=== PATIENT | female | born 1995 | race African-American/Black ===

== ENCOUNTER 2017-01-15 12:14 | Emergency (ER) | payer OTHER ==
[~2017-01-15] VITALS: Ht 162.6 cm; Wt 50.4 kg
[~2017-01-15 12:14] MED LIST: ASPERDRINK81 MG PO; CHROMAGEN,1 CAPSULE PO; FEOSOL325 MG PO; IBUPROFEN800 MG PO; IRON325 M1 PO; MOTRIN600 MG PO; MOTRIN800 MG PO; NAPROSYN375 MG PO; NO; NOHOMEMEDS; PRENA1 CHEW TA1.4 MG PO; PRENATAL TABLE1 EAC3 PO; TORADOL10 MG PO; ZOFRAN4 MG PO; birth control
[2017-01-15 13:39] LABS: HEMATOCRIT 30.9 % (36.0-46.0); MCH 26.8 PG (29.0-34.0); MCV 81.1 FL (83-99); MEAN PLAT.VOLUME 11.2 uM^3 (9.5-12.4); PLATELET COUNT 152 K/uL (156-360); RBC DIS.WIDTH-CV 19.1 % (11.8-14.6); RBC DIS.WIDTH-SD 55.5 % (39-53); RED BLOOD COUNT 3.81 M/uL (3.80-5.20); WHITE BLOOD COUNT 5.3 K/uL (4.1-10.2)
[2017-01-15 13:51] LABS: CHLORIDE 111 mEq/L (99-109); POTASSIUM 3.7 mEq/L (3.7-5.4); SODIUM 138 mEq/L (136-147)
[2017-01-15 13:53] LABS: GLUCOSE 78 mg/dL (70-99)
[2017-01-15 13:54] LABS: ANION GAP 7 MEQ/L (2-14)
[2017-01-15 13:57] LABS: GFR ESTIMATE (CALCULATED) > 59 mL/min/
[2017-01-15 13:58] LABS: UREA NITROGEN (BUN) 7 mg/dL (9-23)
[2017-01-15 14:01] LABS: QUANTITATIVE HCG 1791.3 MIU/ML
[2017-01-15 16:59] VITALS: BP 120/75
[2017-01-18 13:32] LABS: CHLAMYDIA TRACHOMATIS NEGATIVE; NEISSERIA GONORRHOEAE NEGATIVE
== END 2017-01-15 17:11 | disposition home or self-care (01) ==
LOC: EME → EDBD 12:14 → EME 17:11
PROVIDERS: Emergency Medicine
DX: O20.0 Threatened abortion (principal); Z3A.00 Weeks of gestation of pregnancy not specified
CPT/HCPCS: 76801; 80048; 84702; 85027; 86850; 86900; 86901; 87210; 87491; 87591; 99281; 99285; J3010; J7030

== ENCOUNTER 2017-06-14 11:04 | Emergency (ER) | payer OTHER ==
[~2017-06-14] VITALS: Ht 162.6 cm; Wt 46.9 kg
[2017-06-14 13:38] LABS: HEMATOCRIT 34.9 % (36.0-46.0); MCH 26.1 PG (29.0-34.0); MCHC 31.2 G/DL (30.0-36.0); MCV 83.5 FL (83-99); RBC DIS.WIDTH-CV 17.6 % (11.8-14.6); RBC DIS.WIDTH-SD 53.6 % (39-53); RED BLOOD COUNT 4.18 M/uL (3.80-5.20); WHITE BLOOD COUNT 3.9 K/uL (4.1-10.2)
[2017-06-14 13:51] LABS: CHLORIDE 108 mEq/L (99-109); POTASSIUM 4.3 mEq/L (3.7-5.4); SODIUM 140 mEq/L (136-147)
[2017-06-14 13:52] LABS: GLUCOSE 81 mg/dL (70-99)
[2017-06-14 13:54] LABS: ANION GAP 9 MEQ/L (2-14)
[2017-06-14 13:56] LABS: GFR ESTIMATE (CALCULATED) > 59 mL/min/
[2017-06-14 13:57] LABS: UREA NITROGEN (BUN) 9 mg/dL (9-23)
[2017-06-14 14:16] LABS: MEAN PLAT.VOLUME 12.7 uM^3 (9.5-12.4); PLAT.SUFFICIENCY ADEQUATE; PLATELET COUNT 147 K/uL (156-360)
[2017-06-14 14:45] VITALS: BP 113/64
== END 2017-06-14 14:46 | disposition home or self-care (01) ==
LOC: EME 11:04
PROVIDERS: Nurse Practitioner Family
DX: D64.9 Anemia, unspecified (principal)
CPT/HCPCS: 80048; 85027; 99281; 99283

== ENCOUNTER 2017-07-22 03:36 | Emergency (ER) | payer OTHER ==
[~2017-07-22] VITALS: Ht 162.6 cm; Wt 48.8 kg
[2017-07-22] MEDS ORDERED: MOTRIN400 MG PO (06:02)
[2017-07-22 06:14] VITALS: BP 121/78
== END 2017-07-22 06:14 | disposition home or self-care (01) ==
LOC: EME 03:36
PROC: 2W3KX1Z Immobilization of Left Finger using Splint (ICD-10-PCS; principal; 2017-07-22)
DX: S60.032A Contusion of left middle finger without damage to nail, initial encounter (principal); Y04.0XXA Assault by unarmed brawl or fight, initial encounter
CPT/HCPCS: 73130; 99281; 99283

== ENCOUNTER 2018-01-03 18:44 | Outpatient (CLI) | payer OTHER ==
[~2018-01-03] VITALS: Ht 162.6 cm; Wt 60.3 kg
[~2018-01-03 18:44] MED LIST changes: +MOTRIN400 MG PO
[2018-01-03 19:16] VITALS: BP 111/60
[2018-01-03] MEDS ORDERED: CALCIUM500 M4 PO (19:30)
[2018-01-03 20:28] VITALS: BP 118/59
[2018-01-03 21:14] VITALS: BP 120/61
[2018-01-03 22:04] LABS: APPEARANCE SL.HAZY ((CLEAR)); BILIRUBIN NEGATIVE; BLOOD NEGATIVE; COLOR YELLOW ((YELLOW)); GLUCOSE (STRIP) NEGATIVE; KETONES NEGATIVE; LEUKOCYTES NEGATIVE; NITRITE NEGATIVE; PROTEIN (STRIP) NEGATIVE; SPECIFIC GRAVITY 1.013 (1.000-1.030); UROBILINOGEN 0.2 MG/DL (0.2-1.0)
[2018-01-03 22:06] LABS: SOURCE SWAB
[2018-01-03 22:12] LABS: BACTERIA RARE /HPF; EPITHELIAL CELLS 2+ /HPF; MUCUS TRACE /LPF; RED BLOOD CELLS 0-5 /HPF (0-5); UCUL ADDED? NO; WHITE BLOOD CELLS 0-5 /HPF (0-5)
[2018-01-03 23:02] LABS: AMPHETAMINE NEGATIVE (500 ng/mL); BARBITURATES NEGATIVE (200 ng/mL); BENZODIAZEPINES NEGATIVE (150 ng/mL); BUPRENORPHINE NEGATIVE (10 ng/mL); COCAINE NEGATIVE (150 ng/mL); METHADONE NEGATIVE (200 ng/mL); METHAMPHETAMINE NEGATIVE (500 ng/mL); OPIATES (MORPHINE) NEGATIVE (100 ng/mL); OXYCODONE NEGATIVE (100 ng/mL); PHENCYCLIDINE NEGATIVE (25 ng/mL); PROPOXYPHENE NEGATIVE (300 ng/mL); THC CANNABINOIDS NEGATIVE (50 ng/mL); TRICYCLIC ANTIDEPRESSANTS NEGATIVE (300 ng/mL)
[2018-01-03 23:12] LABS: CANDIDA DNA PROBE NEGATIVE; GARDNERELLA DNA PROBE NEGATIVE; TRICHOMONAS DNA PROBE NEGATIVE
== END 2018-01-03 23:35 | disposition home or self-care (01) ==
LOC: LDRP-OP 18:44 → 2WEST 18:46 → LDRP-OP 05-05 08:05
PROVIDERS: Advanced Practice Midwife; Obstetrics & Gynecology
DX: O26.892 Other specified pregnancy related conditions, second trimester (principal); M25.559 Pain in unspecified hip; Z3A.27 27 weeks gestation of pregnancy
CPT/HCPCS: 59025; 81003; 82731; 87086; 87480; 87491; 87510; 87591; 87660; G0378

== ENCOUNTER 2018-02-03 09:43 | Outpatient (CLI) | payer OTHER ==
[~2018-02-03] VITALS: Ht 162.6 cm; Wt 62.0 kg
[~2018-02-03 09:43] MED LIST changes: +CALCIUM500 M4 PO
[2018-02-03 10:01] VITALS: BP 109/64
[2018-02-03 10:34] LABS: BASOPHIL (%) 0.3 % (0-1); EOSINOPHIL (%) 0.3 % (0-5); HEMOGLOBIN 10.5 G/DL (11.9-15.5); IMMATURE GRANULOCYTE (%) 0.6 % (0.0-0.7); LYMPHOCYTE (%) 15.1 % (15-42); LYMPHOCYTE COUNT 1.2 K/uL (1.0-2.8); MCH 29.7 PG (29.0-34.0); MCHC 32.8 G/DL (30.0-36.0); MCV 90.4 FL (83-99); MONOCYTE (%) 10.4 % (3-12); MONOCYTE COUNT 0.8 K/uL (0-0.8); NEUTROPHIL (%) 73.3 % (45-76); NEUTROPHIL COUNT 5.7 K/uL (1.8-6.4); PLATELET COUNT 91 K/uL (156-360); RBC DIS.WIDTH-SD 43.1 % (39-53); RED BLOOD COUNT 3.54 M/uL (3.80-5.20); WHITE BLOOD COUNT 7.8 K/uL (4.1-10.2)
[2018-02-03 12:16] VITALS: BP 109/59
== END 2018-02-03 16:55 | disposition home or self-care (01) ==
LOC: LDRP-OP 09:43 → 2WEST 09:45 → LDRP-OP 05-05 00:24
PROVIDERS: Advanced Practice Midwife
DX: O26.893 Other specified pregnancy related conditions, third trimester (principal); M54.5 Low back pain; W01.0XXA Fall on same level from slipping, tripping and stumbling without subsequent striking against object, initial encounter; Y99.0 Civilian activity done for income or pay; Z3A.31 31 weeks gestation of pregnancy
CPT/HCPCS: 59025; 76818; 85025; G0378

== ENCOUNTER 2018-03-25 02:04 | Outpatient (CLI) | payer OTHER ==
[~2018-03-25] VITALS: Ht 162.6 cm; Wt 64.9 kg
[2018-03-25 02:17] VITALS: BP 128/65
[2018-03-25] MEDS ORDERED: CALCIUM500 M4 PO (02:32)
== END 2018-03-25 03:45 | disposition home or self-care (01) ==
LOC: LDRP-OP 02:04 → 2WEST 02:05 → LDRP-OP 05-05 21:36
DX: O47.1 False labor at or after 37 completed weeks of gestation (principal); O09.893 Supervision of other high risk pregnancies, third trimester; O99.113 Other diseases of the blood and blood-forming organs and certain disorders involving the immune mechanism complicating pregnancy, third trimester; D69.6 Thrombocytopenia, unspecified; Z3A.38 38 weeks gestation of pregnancy
CPT/HCPCS: 59025; G0378

== ENCOUNTER 2018-03-26 17:11 | Outpatient (CLI) | payer OTHER ==
[~2018-03-26] VITALS: Ht 162.6 cm; Wt 64.8 kg
[2018-03-26 17:07] VITALS: BP 123/65
[2018-03-26 19:30] VITALS: BP 112/64
== END 2018-03-26 20:05 | disposition home or self-care (01) ==
LOC: LDRP-OP 17:11 → 2WEST 17:12 → LDRP-OP 05-05 03:54
DX: O47.1 False labor at or after 37 completed weeks of gestation (principal); O09.893 Supervision of other high risk pregnancies, third trimester; O99.113 Other diseases of the blood and blood-forming organs and certain disorders involving the immune mechanism complicating pregnancy, third trimester; D69.6 Thrombocytopenia, unspecified; Z3A.38 38 weeks gestation of pregnancy
CPT/HCPCS: 59025; G0378

== ENCOUNTER 2018-03-28 08:16 | Inpatient (IN) | payer OTHER ==
[2018-03-28] VITALS (20 sets, daily range): BP systolic 95–167; BP diastolic 53–98
[~2018-03-28] VITALS: Ht 162.6 cm; Wt 65.0 kg
[2018-03-28 09:49] LABS: BASOPHIL (%) 0.2 % (0-1); EOSINOPHIL (%) 0.4 % (0-5); HEMOGLOBIN 10.4 G/DL (11.9-15.5); IMMATURE GRANULOCYTE (%) 0.5 % (0.0-0.7); LYMPHOCYTE (%) 21.9 % (15-42); LYMPHOCYTE COUNT 1.2 K/uL (1.0-2.8); MCH 26.9 PG (29.0-34.0); MCHC 31.5 G/DL (30.0-36.0); MCV 85.5 FL (83-99); MONOCYTE (%) 10.3 % (3-12); MONOCYTE COUNT 0.6 K/uL (0-0.8); NEUTROPHIL (%) 66.7 % (45-76); NEUTROPHIL COUNT 3.7 K/uL (1.8-6.4); PLATELET COUNT 77 K/uL (156-360); RBC DIS.WIDTH-CV 14.9 % (11.8-14.6); RBC DIS.WIDTH-SD 46.5 % (39-53); RED BLOOD COUNT 3.86 M/uL (3.80-5.20); WHITE BLOOD COUNT 5.5 K/uL (4.1-10.2)
[2018-03-28 10:08] LABS: ALBUMIN 3.4 G/DL (3.2-4.8); ALKALINE PHOSPHATASE 174 IU/L (3-129); ALT (GPT) 8 IU/L (3-49); AST (GOT) 15 IU/L (2-34); CHLORIDE 107 MEQ/L (99-109); CREATININE 0.4 MG/DL (0.6-1.3); GFR ESTIMATE (CALCULATED) > 59 mL/min/; GLUCOSE 74 mg/dL (70-99); POTASSIUM 3.5 MEQ/L (3.7-5.4); SODIUM 137 MEQ/L (136-147); TOTAL BILIRUBIN 0.6 MG/DL (0.0-1.0); TOTAL PROTEIN 6.1 G/DL (6.4-8.3); UREA NITROGEN (BUN) 6 mg/dL (9-23)
[2018-03-28 11:00] LABS: AMPHETAMINE NEGATIVE (500 ng/mL); BARBITURATES NEGATIVE (200 ng/mL); BENZODIAZEPINES NEGATIVE (150 ng/mL); BUPRENORPHINE NEGATIVE (10 ng/mL); COCAINE NEGATIVE (150 ng/mL); METHADONE NEGATIVE (200 ng/mL); METHAMPHETAMINE NEGATIVE (500 ng/mL); OPIATES (MORPHINE) NEGATIVE (100 ng/mL); OXYCODONE NEGATIVE (100 ng/mL); PHENCYCLIDINE NEGATIVE (25 ng/mL); PROPOXYPHENE NEGATIVE (300 ng/mL); THC CANNABINOIDS NEGATIVE (50 ng/mL); TRICYCLIC ANTIDEPRESSANTS NEGATIVE (300 ng/mL)
[2018-03-29 00:16] VITALS: BP 136/87
[2018-03-29 01:09] VITALS: BP 125/73
[2018-03-29 07:03] LABS: BASOPHIL (%) 0.2 % (0-1); EOSINOPHIL (%) 0.2 % (0-5); HEMOGLOBIN 10.1 G/DL (11.9-15.5); IMMATURE GRANULOCYTE (%) 0.4 % (0.0-0.7); LYMPHOCYTE (%) 17.2 % (15-42); LYMPHOCYTE COUNT 1.6 K/uL (1.0-2.8); MCH 27.9 PG (29.0-34.0); MCHC 32.6 G/DL (30.0-36.0); MCV 85.6 FL (83-99); MONOCYTE (%) 11.7 % (3-12); MONOCYTE COUNT 1.1 K/uL (0-0.8); NEUTROPHIL (%) 70.3 % (45-76); NEUTROPHIL COUNT 6.4 K/uL (1.8-6.4); PLATELET COUNT 82 K/uL (156-360); RBC DIS.WIDTH-CV 14.8 % (11.8-14.6); RBC DIS.WIDTH-SD 45.5 % (39-53); RED BLOOD COUNT 3.62 M/uL (3.80-5.20); WHITE BLOOD COUNT 9.1 K/uL (4.1-10.2)
[2018-03-29 07:46] VITALS: BP 101/53
[2018-03-29 14:20] VITALS: BP 119/66
[2018-03-29 23:00] VITALS: BP 135/77
[2018-03-30] MEDS ORDERED: LO-DOSE ASPIRIN81 M1 PO (05:39)
[2018-03-30] MEDS ORDERED: DOCUSATE SODIU100 MG PO (11:49)
[2018-03-30] MEDS ORDERED: HEMOCYTE324 MG PO (11:49)
[2018-03-30] MEDS ORDERED: IBUPROFEN800 MG PO (11:49)
== END 2018-03-30 14:25 | disposition home or self-care (01) | DRG 775 ==
LOC: LDRP-OP 08:16 → 2WEST 08:17 → LDRP-OP 23:07 → 2WEST 03-30 14:25 → LDRP-OP 05-05 20:23
PROVIDERS: Advanced Practice Midwife
PROC: 10E0XZZ Delivery of Products of Conception, External Approach (ICD-10-PCS; principal; 2018-03-28)
DX: O99.02 Anemia complicating childbirth (principal); O99.12 Other diseases of the blood and blood-forming organs and certain disorders involving the immune mechanism complicating childbirth; Z37.0 Single live birth; Z3A.39 39 weeks gestation of pregnancy; D62 Acute posthemorrhagic anemia; D69.6 Thrombocytopenia, unspecified
CPT/HCPCS: 80053; 85025; C1726; J0595; J7120